=== PATIENT | male | born 2000 | race Two or more races ===

== ENCOUNTER 2024-02-11 15:04 | Emergency (ER) | payer SELFPAY ==
[~2024-02-11] VITALS: Ht 177.8 cm; Wt 132.4 kg
[2024-02-11] MEDS ORDERED: LIDOCAINE HCL 1% 20 ML VIAL ONE (15:29)
[2024-02-11] MEDS ORDERED: TDAP DIPH,PERTUSS,TET VAC/PF 0.5 ML DISP.SYRIN IM ONE (15:29)
[2024-02-11] MEDS: LIDOCAINE HCL 1% 20 ML VIAL TP ONE (15:37)
[2024-02-11] MEDS: TDAP DIPH,PERTUSS,TET VAC/PF 0.5 ML DISP.SYRIN IM ONE (15:44)
[2024-02-11] MEDS ORDERED: NEOMY/BACITRAC/POLYMI OINT 28.35 GM TUBE ONE (16:50)
[2024-02-11] MEDS: NEOMY/BACITRA/POLYMYXIN B OINT UD PACKET TP ONE (16:50)
[2024-02-11 16:53] VITALS: BP 139/81; O2SAT 99
== END 2024-02-11 16:55 | disposition home or self-care (01) ==
LOC: ER 15:10
DX: S81.012A Laceration without foreign body, left knee, initial encounter (principal); W26.8XXA Contact with other sharp object(s), not elsewhere classified, initial encounter; Y93.89 Activity, other specified; Y92.89 Other specified places as the place of occurrence of the external cause; Y99.8 Other external cause status
CPT/HCPCS: 12001; 73560; 90471; 90715; 99283; J3490; A4606; A4663

== ENCOUNTER 2024-02-26 13:42 | Emergency (ER) | payer SELFPAY ==
[~2024-02-26] VITALS: Ht 177.8 cm; Wt 131.5 kg
[2024-02-26 13:47] VITALS: O2SAT 97
== END 2024-02-26 14:00 | disposition home or self-care (01) ==
LOC: ER 13:42
DX: S81.012D Laceration without foreign body, left knee, subsequent encounter (principal); X58.XXXD Exposure to other specified factors, subsequent encounter
CPT/HCPCS: A4606; A4663